=== PATIENT | male | born 1995 | race Caucasian/White ===

== ENCOUNTER → 2016-08-13 | Outpatient (CLI) | payer BC, OTHER ==
--- NOTE | 2016-08-13 14:23 | DIAGNOSTIC IMAGING REPORT ---
RIGHT ANKLE MIN 3 VIEWS CLINICAL HISTORY: Follow-up fracture. COMPARISON: None FINDINGS: There is no ankle mortise widening. There is no acute fracture of the distal right tibia. Note is made of an oblique nondisplaced fracture of the distal shaft of the right fibula. IMPRESSION: Oblique nondisplaced fracture of the distal shaft of the right fibula. No significant callus formation. No ankle mortise widening. Moderate lateral ankle soft tissue swelling. Electronically signed by: Aba Tang M.D. 08/13/2016 2:21 PM Dictated Date/Time: 08/13/2016 2:20 PM
== END | disposition home or self-care (01) ==
LOC: C.RDSM 14:22
PROVIDERS: ATTEND Physician Assistant
DX: S82.831A Other fracture of upper and lower end of right fibula, initial encounter for closed fracture (principal); X58.XXXA Exposure to other specified factors, initial encounter

== ENCOUNTER → 2016-09-08 | Outpatient (CLI) | payer BC | END | disposition home or self-care (01) | LOC: C.RDSM 11:42 | PROVIDERS: ATTEND Physical Medicine & Rehabilitation Sports Medicine | DX: S82.831A Other fracture of upper and lower end of right fibula, initial encounter for closed fracture (principal); X58.XXXA Exposure to other specified factors, initial encounter ==

== ENCOUNTER → 2016-09-29 | Outpatient (CLI) | payer BC | END | disposition home or self-care (01) | LOC: C.RDSM 15:00 | PROVIDERS: ATTEND Physical Medicine & Rehabilitation Sports Medicine | DX: S92.405B Nondisplaced unspecified fracture of left great toe, initial encounter for open fracture (principal); X58.XXXA Exposure to other specified factors, initial encounter ==

== ENCOUNTER → 2016-10-31 | Outpatient (CLI) | payer BC | END | disposition home or self-care (01) | LOC: C.RDSM 12:15 | PROVIDERS: ATTEND Physical Medicine & Rehabilitation Sports Medicine | DX: S82.64XD Nondisplaced fracture of lateral malleolus of right fibula, subsequent encounter for closed fracture with routine healing (principal); X58.XXXD Exposure to other specified factors, subsequent encounter ==